=== PATIENT | male | born 1990 | race Caucasian/White ===

== ENCOUNTER 2017-11-30 19:11 | Emergency (ER) | payer OTHER ==
[~2017-11-30] VITALS: Ht 172.7 cm; Wt 63.5 kg
[2017-11-30 19:11] VITALS: BP_SYST 133
--- NOTE | 2017-11-30 19:18 | NUR ---
Patient to ER bed 01 to gown for evaluation. Side rails up. Report given to ZUHAIR Palacios
--- NOTE | 2017-11-30 19:20 | NUR ---
Pt came in via ambulance [id number] with a complaint of syncope. Pt able to answer questions appropriatley. Pt states she passed out for about 10 seconds before eating. Has history of asthma, cerebral palsy. No fever, headache, SOB, noted. Side rails up and safety precaution observed. Will continue to monitor Pt.
--- NOTE | 2017-11-30 19:25 | NUR ---
DELPHINE Hatch at bedside for medical evaluation.
[2017-11-30 20:00] VITALS: BP_SYST 130
--- NOTE | 2017-11-30 20:00 | NUR ---
Patient given written and verbal discharge instructions and verbalizes understanding. ER MD Hatch discussed with patient the results and treatment provided. Patient in stable condition. ID arm band removed. IV catheter removed intact and dressing applied, no active bleeding. Patient educated on pain management and to follow up with PMD. Pain Scale 0/10. Opportunity for questions provided and answered. Medication side effect fact sheet provided.
== END 2017-11-30 20:00 | disposition home or self-care (01) ==
LOC: SED 19:11
DX: E46 Unspecified protein-calorie malnutrition (principal); R55 Syncope and collapse; Z68.21 Body mass index [BMI] 21.0-21.9, adult
CPT/HCPCS: 99283